=== PATIENT | male | born 1970 | race Caucasian/White ===

== ENCOUNTER 2024-10-26 20:12 | Emergency (ER) | payer OTHER, SELFPAY ==
[2024-10-26 20:13] VITALS: BP 172/99; PULSE 95; RESP 18; TEMP 36.9; O2SAT 99; BMI 31.1
[2024-10-26 21:25] LABS: Absolute Lymphocyte Count 2.07 X10^3/uL (0.83-4.51); Absolute Neutrophil Count 6.7 X10^3/uL (2.0-7.7); Basophil# 0.04 X10^3/uL; Basophil% 0.4 % (0-1); Eosinophil# 0.04 X10^3/uL; Eosinophils% 0.4 % (0-5); Hemoglobin 16.2 g/dL (13.0-16.5); Lymphocyte # 2.07 X10^3/ul (0.83-4.51); Lymphocyte % 21.5 % (19-41); Mean Corp Hgb Conc 34.5 g/dL (32-36); Mean Corpuscular Hgb 33.9 pg (27.0-32.0); Mean Corpuscular Volume 98.3 fL (80-94); Mean Platelet Vol. 8.6 fl (6.2-12.0); Monocyte# 0.76 X10^3/uL; Monocyte% 7.9 % (0-10); NRBC Flagged by Analyzer 0 % (0-5); Neutrophil % 69.5 % (47-70); Platelet Count 250 K/mm3 (150-450); RBC Distribution Width CV 11.9 % (11.6-14.6); RBC Distribution Width SD 43.3 fl (35.1-43.9); Red Blood Count 4.78 M/mm3 (4.6-6.2); White Blood Count 9.6 K/mm3 (4.4-11.0)
--- NOTE | 2024-10-26 22:01 | EDS_ITS ---
HPI History of Present Illness Chief Complaint: Nausea/Vomiting Informant: patient Onset/Context/Timing Onset: Days (5) Context: Sudden Onset Timing: Continuous Worsened by: Eating, drinking Relieved by: Nothing Narrative Narrative: Patient presents with nausea and vomiting for the past 5 days. Patient states he has been unable to keep anything down. Patient states that he was eating a cheeseburger last week and was able to swallow that. Patient states that soon after that he ate a pulled pork sandwich but started having nausea and vomiting. Patient states he has been able to swallow anything since that time. Patient denies any diarrhea. Patient denies any melena or hematochezia. Patient denies any hematemesis or coffee-ground emesis. Patient denies any chest pain or shortness of breath. Patient denies any fevers or chills. PFSH PFSH Medical History no medical history no medical history Home Medications ?Medication ?Instructions ?Recorded ?Last Taken ?Type NK 10/26/24 Unknown History Allergy/AdvReac Type Severity Reaction Status Date / Time bee pollen Allergy Anaphylaxis Verified 10/26/24 20:13 Family History (Updated 10/26/24 @ 21:32 by Ligia Alfaro) Father Cancer Family History no significant family his Surgical History H/O knee surgery Social History (Updated 10/26/24 @ 22:[address] Shukri Sarmiento DO) household members: spouse and children current occupational status: employed Smoking Status: Current every day smoker tobacco type: smokeless tobacco alcohol intake: current alcohol intake frequency: 0-2 drinks per day ROS ROS ED Constitutional Constitutional ED: Denies chills or fever(s) Eyes Eyes: Denies blurry vision or change in vision ENT ENT ED: Denies rhinorrhea or sore throat Cardiovascular Cardiovascular: Denies chest pain or palpitations Respiratory/Chest Respiratory/Chest: Denies cough or dyspnea Gastrointestinal Gastrointestinal: Reports nausea and vomiting Genitourinary Genitourinary ED: Denies dysuria or hematuria Musculoskeletal Musculoskeletal: Denies back pain or neck pain Integumentary Denies abscess or rash Neurologic Neurologic: Denies headache(s) or weakness Allergic/Immunologic Allergic/Immunologic ED: Denies mouth swelling or urticaria EXAM Physical Exam Const Vital Signs: 10/26/24 20:13 10/26/24 22:21 10/27/24 00:03 Temperature 98.4 F Temperature Source Oral Pulse Rate 95 77 67 Respiratory Rate 18 16 16 Blood Pressure 172/99 H 148/91 H 146/93 H Blood Pressure Mean 123 110 110 Pulse Ox 99 Oxygen Delivery Method Room Air 10/27/24 01:32 Temperature Temperature Source Pulse Rate 66 Respiratory Rate 18 Blood Pressure Blood Pressure Mean Pulse Ox 98 Oxygen Delivery Method Positive well nourished and well developed General Appearance ED: well developed and NAD HEENT Reports moist mucous membranes Neck supple and no JVD Chest Wall palpation of chest normal Resp normal respiratory effort and clear to auscultation bilaterally Cardio regular rate and regular rhythm GI non-tender and non-distended Palpation: soft Neuro oriented x3, CN's II-XII intact bilaterally and no sensory deficits noted Sensorium / Orientation: alert Motor Exam: strength 5/5 throughout Psych mental status grossly normal MDM MDM MDM Narrative Medical decision making narrative: Differential diagnosis includes esophageal food impaction, gastritis, esophageal mass, electrolyte abnormality, dehydration, aspiration, and viral illness. CBC will be obtained to assess for leukocytosis and anemia. Comprehensive metabolic profile will be obtained to assess for electrolyte abnormality, renal function, and hepatic function. Lipase will be obtained to assess for pancreatitis. Lab Data Attestation: I reviewed the patient's lab results. Lab results narrative: The CBC was reviewed and was within normal limits. Comprehensive metabolic profile was reviewed. AST is slightly elevated at 39. Total bilirubin was mildly elevated at 2.15. BUN was slightly elevated at 27 and creatinine was slightly elevated at 1.21. Lipase was reviewed and was normal at 15. Labs: Laboratory Results - last 24 hr 10/26/24 21:11 WBC 9.6 RBC 4.78 Hgb 16.2 Hct 47.0 MCV 98.3 H MCH 33.9 H MCHC 34.5 RDW Std Deviation 43.3 RDW Coeff of Dominique 11.9 Plt Count 250 MPV 8.6 Immature Gran % (Auto) 0.300 Neut % (Auto) 69.5 Lymph % (Auto) 21.5 [place] % (Auto) 7.9 Eos % (Auto) 0.4 Baso % (Auto) 0.4 Absolute Neuts (auto) 6.7 Absolute Lymphs (auto) 2.07 Nucleated RBC % 0 Sodium 145 Potassium 4.2 Chloride 108 Carbon Dioxide 19.5 L Anion Gap 18 H BUN 27 H Creatinine 1.21 H Estim Creat Clear Calc 77.14 Est GFR (MDRD) Non-Af 71 BUN/Creatinine Ratio 22.6 H Glucose 95 Calcium 10.1 Total Bilirubin 2.15 H AST 39 H ALT 33 Alkaline Phosphatase 51 Total Protein 8.3 Albumin 5.0 Globulin 3.3 Albumin/Globulin Ratio 1.5 Lipase 15 Treatment and Re-Evaluation :: Patient was given IV fluids, Zofran, and glucagon. Patient was advised of his findings. Patient was given a p.o. challenge. Patient was unable to swallow water. Because of this, I will contact Dr. Lopez for possible EGD for esophageal food impaction. Patient was discussed with Dr. Lopez. He does not feel that this needs to be done emergently. He will perform endoscopy tomorrow morning. Patient was advised of the plan. He does not want to wait here in the emergency department until this can be performed. Patient states he wants to leave. I do not feel the patient needs to sign out AGAINST MEDICAL ADVICE. However I did inform patient that the only way to resolve his esophageal food impaction is to have an endoscopy. I advised him that the quickest way to have this done is to wait in the emergency department until this can be done in a few hours. Patient states he just wants to go home and sleep in his own bed. Patient was instructed to return if worse in any way. Discharge Plan Triage Chief Complaint: Nausea/Vomiting ED Provider: Shukri Sarmiento Dx/Rx/DC Orders Clinical Impression: Esophageal obstruction due to food impaction, Nausea and vomiting Prescriptions: No Action NK Primary Care Provider: Care Physician,No Primary Print Language: Indonesian
[2024-10-26 22:07] LABS: ALB/GLOB Ratio 1.5 RATIO (0.9-2.4); AST(SGOT) 39 U/L (<=37); Alanine Aminotransfer ALT/SGPT 33 U/L (<=46); Alkaline Phosphatase 51 U/L (40-129); Anion Gap 18 (5-15); BUN 27 mg/dL (4-19); BUN/Creat Ratio 22.6 RATIO (10-20); Calcium,Total 10.1 mg/dL (7.6-11.0); Carbon Dioxide 19.5 mmol/L (21.0-32.0); Chloride 108 mmol/L (98-108); Creatinine, Serum 1.21 mg/dL (0.70-1.20); EST Glomerular Filtration Rate 71 (>60); Estimated Creatinine Clearance 77.14 ml/min (50-250); Globulin 3.3 g/dL (2.2-4.2); Glucose 95 mg/dL (70-99); Lipase 15 U/L (13-75); Potassium 4.2 mmol/L (3.3-5.1); Protein, Total 8.3 g/dL (5.9-8.4); Sodium Level 145 mmol/L (133-145); Total Bilirubin 2.15 mg/dL (0.00-1.30)
[2024-10-26] MEDS: Glucagon 1 MG/ML Syringe IV (22:17)
[2024-10-26] MEDS: 0.9% Normal Saline (1000mL) 1,000 ML 1000 ML IV (22:17)
[2024-10-26] MEDS: Ondansetron 4 MG/2 ML Vial IV (22:17)
[2024-10-26 22:21] VITALS: BP 148/91; PULSE 77; RESP 16
--- OUTSIDE RECORDS SUMMARY | 2024-10-26 22:24 | XMS RPT_ITS | CCD ---
Author Organization [facility] Care Team Providers Care Make Up Editor Name Role Phone Partha Angel Referring Unavailable Partha Angel Primary Care Unavailable Mart Marinelli Attending Unavailable Results Test Name Value Interpretation Reference Range Facility C-REACTIVE PROTEIN 023 CRP [Mass/Vol] 0.6 mg/L Normal <8.0 [facility] Comment on above: Performed By: #### 7 065, 374, 4420, 88895, 622, 1005, 809 #### [facility] [place] [address] Office Receptionist: Luis Carr MD COMPREHENSIVE METABOLIC PANE [facility] 04-08-2023 Albumin [Mass/Vol] 4.7 g/dL Normal 3.6-5.1 [facility] Comment on above: Performed By: #### 7 065, 374, 4420, 78306, 622, 1005, 809 #### [facility] [place] [address] Office Receptionist: Luis Carr MD Albumin/Globulin [Mass ratio] 1.9 {ratio} Normal 1.0-2.5 [facility] Comment on above: Performed By: #### 7 065, 374, 4420, 07334, 622, 1005, 809 #### [facility] [place] [address] Office Receptionist: Luis Carr MD ALP [Catalytic activity/Vol] 44 U/L Normal 35-144 [facility] Comment on above: Performed By: #### 7 065, 374, 4420, 73933, 622, 1005, 809 #### [facility] [place] [address] Office Receptionist: Luis Carr MD ALT [Catalytic activity/Vol] 27 U/L Normal 9-46 [facility] Comment on above: Performed By: #### 7 065, 374, 4420, 89271, 622, 1005, 809 #### [facility] [place] [address] Office Receptionist: Luis Carr MD AST [Catalytic activity/Vol] 24 U/L Normal 10-35 [facility] Comment on above: Performed By: #### 7 065, 374, 4420, 51087, 622, 1005, 809 #### [facility] [place] [address] Office Receptionist: Luis Carr MD Bilirubin [Mass/Vol] 0.6 mg/dL Normal 0.2-1.2 [facility] Comment on above: Performed By: #### 7 065, 374, 4420, 95174, 622, 1005, 809 #### [facility] [place] [address] Office Receptionist: Luis Carr MD BUN/CREATININE RATIO SEE NOTE: Normal 6-22 [facility] Comment on above: Result Comment: Not Reported: BUN and Creatinine are within reference range. Performed By: #### 7 065, 374, 4420, 40362, 622, 1005, 809 #### [facility] [place] [address] Office Receptionist: Luis Carr MD Calcium [Mass/Vol] 9.5 mg/dL Normal 8.6-10.3 [facility] Comment on above: Performed By: #### 7 065, 374, 4420, 17605, 622, 1005, 809 #### [facility] [place] [address] Office Receptionist: Luis Carr MD Chloride [Moles/Vol] 107 mmol/L Normal 98-110 [facility] Comment on above: Performed By: #### 7 065, 374, 4420, 96903, 622, 1005, 809 #### [facility] [place] [address] Office Receptionist: Luis Carr MD CO2 [Moles/Vol] 25 mmol/L Normal 20-32 [facility] Comment on above: Performed By: #### 7 065, 374, 4420, 31648, 622, 1005, 809 #### [facility] [place] [address] Office Receptionist: Luis Carr MD Creatinine [Mass/Vol] 0.90 mg/dL Normal 0.70-1.30 [facility] Comment on above: Performed By: #### 7 065, 374, 4420, 21192, 622, 1005, 809 #### [facility] [place] [address] Office Receptionist: Luis Carr MD GFR/1.73 sq M.predicted among non-blacks MDRD (S/P/Bld) [Vol rate/Area] 102 mL/min/{1.73_m2} Normal > OR = 60 [facility] Comment on above: Performed By: #### 7 065, 374, 4420, 11571, 622, 1005, 809 #### [facility] [place] [address] Office Receptionist: Luis Carr MD Globulin (S) [Mass/Vol] 2.5 g/dL Normal 1.9-3.7 [facility] Comment on above: Performed By: #### 7 065, 374, 4420, 02127, 622, 1005, 809 #### [facility] [place] [address] Office Receptionist: Luis Carr MD Glucose [Mass/Vol] 91 mg/dL Normal 65-99 [facility] Comment on above: Result Comment: Fasting reference interval Performed By: #### 7 065, 374, 4420, 01600, 622, 1005, 809 #### [facility] [place] [address] Office Receptionist: Luis Carr MD Potassium [Moles/Vol] 4.3 mmol/L Normal 3.5-5.3 [facility] Comment on above: Performed By: #### 7 065, 374, 4420, 43582, 622, 1005, 809 #### [facility] [place] [address] Office Receptionist: Luis Carr MD Protein [Mass/Vol] 7.2 g/dL Normal 6.1-8.1 [facility] Comment on above: Performed By: #### 7 065, 374, 4420, 04887, 622, 1005, 809 #### [facility] [place] [address] Office Receptionist: Luis Carr MD Sodium [Moles/Vol] 140 mmol/L Normal 135-146 [facility] Comment on above: Performed By: #### 7 065, 374, 4420, 73172, 622, 1005, 809 #### [facility] [place] [address] Office Receptionist: Luis Carr MD Urea nitrogen [Mass/Vol] 16 mg/dL Normal 7-25 [facility] Comment on above: Performed By: #### 7 065, 374, 4420, 38240, 622, 1005, 809 #### [facility] [place] [address] Office Receptionist: Luis Carr MD CREATINE KINASE, TOTALon CREATINE KINASE, TOTAL 106 U/L Normal 44-196 [facility] Comment on above: Performed By: #### 7 065, 374, 4420, 71400, 622, 1005, 809 #### [facility] [place] [address] Office Receptionist: Luis Carr MD MAGNESIUMon 04-08-2023 Magnesium [Mass/Vol] 2.0 mg/dL Normal 1.5-2.5 [facility] Comment on above: Performed By: #### 7 065, 374, 4420, 93596, 622, 1005, 809 #### [facility] [address], [address] [place] [address] Office Receptionist: Luis Carr MD SED RATE BY MODIFIED WESTERG RENon 04-08-2023 SED RATE BY MODIFIED WESTERGREN 6 mm/h Normal < OR = 20 [facility] Comment on above: Performed By: #### 7 065, 374, 4420, 80405, 622, 1005, 809 #### [facility] [address], [address] [place] [address] Office Receptionist: Luis Carr MD TEST AUTHORIZATIONon 023 CLIENT CONTACT: WADE Larkin Normal [facility] Comment on above: Performed By: #### 7 065, 374, 4420, 44090, 622, 1005, 809 #### [facility] [address], [address] [place] [address] Office Receptionist: Luis Carr MD COMMENT Normal [facility] Comment on above: Result Comment: Plea se have the ordering physician or his or her authorized claims representative sign a copy of this report and promptly return it by faxing it to: [phone] or by returning the form to your critical care nurse. Performed By: #### 7 065, 374, 4420, 67856, 622, 1005, 809 #### [facility] [address], [address] [place] [address] Office Receptionist: Luis Carr MD REPORT ALWAYS MESSAGE SIGNATURE Normal [facility] Comment on above: Result Comment: The laboratory testing on this patient was verbally requested or confirmed by the ordering physician or his or her authorized claims representative after contact with an employee of [employer]. Federal regulations require that we maintain on file written authorization for all laboratory testing. Accordingly we are asking that the ordering physician or his or her authorized claims representative sign a copy of this report and promptly return it to the patient support representative. Signature: Performed By: #### 7 065, 374, 4420, 62565, 622, 1005, 809 #### [facility] of [address], [address] [place] [address] Office Receptionist: Luis Carr MD TEST CODE: [id number] Normal [facility] Comment on above: Performed By: #### 7 065, 374, 4420, 34945, 622, 1005, 809 #### [facility] of [address], [address] [place] [address] Office Receptionist: Luis Carr MD TEST NAME: VITAMIN B12/FOLATE, Normal [facility] Comment on above: Performed By: #### 7 065, 374, 4420, 34423, 622, 1005, 809 #### [facility] of [address], [address] [place] [address] Office Receptionist: Luis Carr MD VITAMIN B12/FOLATE, SERUM [facility] 04-08-2023 Cobalamin (Vitamin B12) [Mass/Vol] 532 pg/mL Normal 200-1100 [facility] Comment on above: Performed By: #### 7 065, 374, 4420, 68300, 622, 1005, 809 #### [facility] [place] [address] Office Receptionist: Luis Carr MD Folate [Mass/Vol] 17.1 ng/mL Normal [facility] Comment on above: Result Comment: Refe rence Range Low: <3.4 Borderline: 3.4-5.4 Normal: >5.4 Performed By: #### 7 065, 374, 4420, 93812, 622, 1005, 809 #### [facility] of [address], [address] [place] [address] Office Receptionist: Luis Carr MD Encounters Encounter Date Encounter Type Care Provider [facility]: [facility] Payers Date Payer Category Payer Self-pay 2023 Unknown [id number] Unknown [id number] Summary Purpose Family History No Family History Records FoundNo Family History Records Found Advance Directives No Advanced Directives Records FoundNo Advanced Directives Records Found Additional Source Comments (unrecognized sect ion and content) No Status Records FoundNo Status Records Found INFORMATION SOURCE (unrecogn ized section and content) DATE CREATED AUTHOR 04/09/2023 [facility] DATE CREATED AUTHOR AUTHOR'S ORGANIZ ATION 05/16/2023 [facility] FOR RECORDS PERTAINING TO PATIENTS WHO ARE OR HAVE BEEN ENROLLED IN A CHEMICAL DEPENDENCY/SUBSTANCEABUSE PROGRAM, SOME INFORMATION MAY BE OMITTED. This clinical summary was aggregated from multiple sources. Caution should be exercised in using it in the provision of clinical care. This summary normalizes information from multiple sources, and as a consequence, information in this document may materially change the coding, format and clinical context of patient data. In addition, data may be omitted in some cases. CLINICAL DECISIONS SHOULD BE BASED ON THE PRIMARY CLINICAL RECORDS. [employer] provides no warranty or guarantee of the accuracy or completeness of information in this document.
[2024-10-27 00:03] VITALS: BP 146/93; PULSE 67; RESP 16
[2024-10-27 01:32] VITALS: PULSE 66; RESP 18; O2SAT 98
--- NOTE | 2024-10-27 01:33 | ED.RN ---
Addendum entered by Maribell Adams 10/27/24 01:39: This RN attempted to get discharge vital signs by starting the blood pressure cycle, the patient took off the blood pressure cuff off as this RN was walking out of the room. Patient educated the patient on his options and the benefit of staying in the ED for the follow up with the real estate clerk. All questions answered, pt still wishes to leave. MD notified. Original Note: This RN was called to the room d/t the patient's stating the patient did not want to stay. This RN talked to the patient, the patient stated well if the doctor is not going to be here for a few hours, then I need to get out of here. This RN attempted to get discharge vital signs by starting the blood pressure cyce, the patient took off the blood pressure
== END 2024-10-27 01:55 | disposition left against medical advice (07) ==
PROVIDERS: Emergency Provider Emergency Medicine; Referring Provider Emergency Medicine; Visit Provider Emergency Medicine
DX: T18.108A Unspecified foreign body in esophagus causing other injury, initial encounter (principal); R11.2 Nausea with vomiting, unspecified; K22.2 Esophageal obstruction; W44.F3XA Food entering into or through a natural orifice, initial encounter
CPT/HCPCS: 80053; 83690; 85025; 96361; 96374; 96375; 96376; 99282; A4216; J1610; J2405

== ENCOUNTER 2024-11-11 07:54 | Day surgery (SDC) | payer OTHER, SELFPAY ==
[2024-11-11 08:20] VITALS: BP 157/100; PULSE 68; RESP 18; TEMP 36.6; O2SAT 100
[2024-11-11] MEDS: Lidocaine Jelly 2% 20 ML Syringe (URO-JET) 1 APPLIC (08:58)
== END 2024-11-11 23:59 | disposition home or self-care (01) ==
LOC: EN 07:58
PROVIDERS: Visit Provider Internal Medicine Gastroenterology
PROC: F00ZJWZ Instrumental Swallowing and Oral Function Assessment using Swallowing Equipment (ICD-10-PCS; CPT 43235; principal; 2024-11-11 07:55)
DX: R13.10 Dysphagia, unspecified (principal)
CPT/HCPCS: 91010